=== PATIENT | female | born 1950 | race Caucasian/White ===

== ENCOUNTER 2017-06-20 15:27 | Outpatient (CLI) | payer BC | END 2017-06-20 15:28 | disposition home or self-care (01) | LOC: BICMAMMO 15:27 | PROVIDERS: ATTEND Obstetrics & Gynecology | DX: Z12.31 Encounter for screening mammogram for malignant neoplasm of breast (principal) | CPT/HCPCS: 77063; 77067 ==

== ENCOUNTER 2018-07-07 08:29 | Outpatient (CLI) | payer BC ==
--- NOTE | 2018-07-08 11:12 | MMO ---
Bilateral MAMMO Bilat Screen [facility]. CLINICAL HISTORY: Patient is 67 years old and is seen for screening. The patient has no family history of breast cancer. The patient has no personal history of cancer. VIEWS: The views performed were: bilateral craniocaudal with tomosynthesis and bilateral mediolateral oblique with tomosynthesis. FILMS COMPARED: The present examination has been compared to prior imaging studies performed at [facility] on 05/13/2015, 06/13/2016 and 06/20/2017, and at [facility] on 11/09/2010, 03/05/2012, 03/08/2013 and 04/22/2014. MAMMOGRAM FINDINGS: The breasts are almost entirely fat. There are stable benign appearing calcifications seen in both breasts. There are no suspicious masses, suspicious calcifications, or new areas of architectural distortion. IMPRESSION: THERE IS NO MAMMOGRAPHIC EVIDENCE OF MALIGNANCY. A ROUTINE FOLLOW-UP MAMMOGRAM IN 1 YEAR IS RECOMMENDED. THE RESULTS OF THIS EXAM WERE SENT TO THE PATIENT. ACR BI-RADS Category 2 - Benign finding MAMMOGRAPHY NOTE: 1. A negative mammogram report should not delay a biopsy if a dominant of clinically suspicious mass is present. 2. Approximately 10% to 15% of breast cancers are not detected by mammography. 3. Adenosis and dense breasts may obscure an underlying neoplasm.
== END 2018-07-07 08:30 | disposition home or self-care (01) ==
LOC: BICMAMMO 08:29
PROVIDERS: ATTEND Obstetrics & Gynecology
DX: Z12.31 Encounter for screening mammogram for malignant neoplasm of breast (principal)
CPT/HCPCS: 77063; 77067

== ENCOUNTER 2018-09-21 14:47 | Outpatient (CLI) | payer BC ==
--- NOTE | 2018-09-21 15:46 | MRI ---
MRI lumbar spine noncontrast HISTORY: Low back pain with radiculopathy. FINDINGS: Conus medullaris has normal appearance. Vertebral body heights are maintained. Desiccation of all of the intervertebral discs. Mild disc bulge at the T11/12 level. T12-L1: Mild disc space narrowing. Mild posterior disc bulge. Osteophytosis of the facets. Central ca nal and neural foramina remain patent L1-2: Disc space narrowing. Mild posterior disc bulge without significant compromise of the thecal sa c. Osteophytosis. Neural foramina remain patent. L2-3: Mild disc space narrowing. Minimal degenerative retrolisthesis. Degenerative changes of the fac ets. Mild bilateral foraminal stenoses. L3-4: Minimal disc bulge. Central canal remains patent. Degenerative changes with moderate stenosis o f each neural foramen. L4-5: Minimal degenerative spondylolisthesis. Posterior disc bulge and circumferential degenerative c hanges. Mild stenosis of the central canal. Moderate stenosis of each neural foramen, left greater than right. L5-S1: Posterior operative decompression. Thecal sac is patent. Degenerative changes of the facets. N eural foramina remain patent. IMPRESSION: Postoperative and mild to moderate degenerative changes of the lumbar spine. Stenosis mos t pronounced at the L4-5 neural foramina. Clinical correlation regarding each L4 dermatome is required.
--- NOTE | 2018-09-21 16:31 | MRI ---
MRI LEFT HIP WITHOUT CONTRAST: 09/21/18 HISTORY: Pain. COMPARISON: None. FINDINGS: BONES: There is an nondisplaced left femoral neck fracture with stress edema extending along the femoral nec k. Acetabulum have osteophytes bilaterally. Mild degenerative narrowing of the pubic symphysis. Advanced degenerative disease in the lower lumbar spine at L5-S1 as well as facet arthrosis. LABRUM: There is tearing throughout the substance of the anterior and superior labrum. SOFT TISSUES: There is mild synovitis of the left hip. Mild hip joint effusion on the left. There are a few bodies within the left hip joint along the medial margin of the femoral neck. CARTILAGE: There is some chondral delamination on the anterior acetabulum. There is near complete cartilage loss of the posterior femoral head. TENDONS: Iliopsoas tendon is mildly tendinotic. Rectus femoris tendon is intact. The common hamstring and taurus imembranosus tendons have undersurface partial tearing and tendinosis. MUSCLES: Muscle signal and bulk is normal. No evidence of quadriceps femoris impingement. IMPRESSION: 1. Nondisplaced stress type femoral neck fracture on the lateral margin of the femoral neck with edema throughout the head and neck. 2. Synovitis of the left hip joint with numerous bodies may be sequela of secondary chondromatos is. 3. Full thickness cartilage loss of the posterior femoral head and acetabulum with adjacent cart ilage delamination. 4. Tear throughout the substance of the anterior and superior labrum. POS: HOME
== END 2018-09-21 14:48 | disposition home or self-care (01) ==
LOC: SCSMRI 14:47
PROVIDERS: ATTEND Anesthesiology
DX: M25.552 Pain in left hip (principal); M47.26 Other spondylosis with radiculopathy, lumbar region; M84.359A Stress fracture, hip, unspecified, initial encounter for fracture; M65.9 Synovitis and tenosynovitis, unspecified; S73.192A Other sprain of left hip, initial encounter; M94.8X5 Other specified disorders of cartilage, thigh; M48.061 Spinal stenosis, lumbar region without neurogenic claudication; Z98.890 Other specified postprocedural states
CPT/HCPCS: 72148

== ENCOUNTER 2018-12-04 14:04 | Outpatient (CLI) | payer BC ==
[~2018-12-04 14:04] MED LIST: ISOVUE-370 76%-LOCM 1 ML ONE
--- NOTE | 2018-12-04 15:28 | CT ---
CT OF ABDOMEN AND PELVIS: DATE: 12/04/2018. COMPARISON: None available. HISTORY: Intermittent diarrhea. TECHNIQUE: Axial CT imaging at 5 mm intervals from the lung bases through the pubic symphysis with IV and oral c ontrast. Coronal reformatted imaging obtained. FINDINGS: There is a cyst within the left lobe of the liver measuring 3.1 cm. The spleen, gallbladder, pancreas, adrenal glands, and kidneys are unremarkable. There is scattered atherosclerotic calcification of the abdominal aorta and its branches. No evidence for bowel inflammatory change or obstruction. The appendix is unremarkable. No lymphadenopathy in the abdomen or pelvis. There is multilevel lower lumbar spine facet hypertrophy. IMPRESSION: No acute findings. POS: OFF
== END 2018-12-04 14:05 | disposition home or self-care (01) ==
LOC: BICCT 14:04
PROVIDERS: ATTEND Internal Medicine Gastroenterology
DX: K58.0 Irritable bowel syndrome with diarrhea (principal)
CPT/HCPCS: 74177; 82565

== ENCOUNTER 2019-01-12 11:58 | Outpatient (CLI) | payer BC ==
--- NOTE | 2019-01-12 13:38 | RAD ---
2 VIEW ABDOMEN: Date: 01/12/19 Supine and upright views obtained. HISTORY: Change in bowel habits. Abdominal pain. Constipation. FINDINGS: Scattered stool and gas in the colon. Scattered small bowel gas which is nonspecific. No free air or mass effect. No abnormal calcification. IMPRESSION: Scattered nonspecific small bowel gas without evidence of dilatation or obstruction. Scattered stool and gas in the colon. POS: [facility]
== END 2019-01-12 11:59 | disposition home or self-care (01) ==
LOC: BICRAD 11:58
PROVIDERS: ATTEND Physician Assistant Medical
DX: K62.5 Hemorrhage of anus and rectum (principal); K64.8 Other hemorrhoids; R19.4 Change in bowel habit
CPT/HCPCS: 74019

== ENCOUNTER 2019-09-15 08:46 | Outpatient (CLI) | payer BC ==
--- NOTE | 2019-09-15 09:11 | MMO ---
Bilateral MAMMO Bilat Screen [facility]. CLINICAL HISTORY: Patient is 68 years old and is seen for screening. The patient has no family history of breast cancer. The patient has no personal history of cancer. VIEWS: The views performed were: bilateral craniocaudal with tomosynthesis and bilateral mediolateral oblique with tomosynthesis. FILMS COMPARED: The present examination has been compared to prior imaging studies performed at [facility] on 06/13/2016, 06/20/2017 and 07/07/2018. This study has been interpreted with the assistance of computer-aided detection. MAMMOGRAM FINDINGS: The breasts are almost entirely fat. There are no suspicious masses, calcifications or areas of architectural distortion. Benign calcifications are noted bilaterally. There are no suspicious masses, suspicious calcifications, or new areas of architectural distortion. IMPRESSION: THERE IS NO MAMMOGRAPHIC EVIDENCE OF MALIGNANCY. A ROUTINE FOLLOW-UP MAMMOGRAM IN 1 YEAR IS RECOMMENDED. THE RESULTS OF THIS EXAM WERE SENT TO THE PATIENT. ACR BI-RADS Category 2 - Benign finding MAMMOGRAPHY NOTE: 1. A negative mammogram report should not delay a biopsy if a dominant of clinically suspicious mass is present. 2. Approximately 10% to 15% of breast cancers are not detected by mammography. 3. Adenosis and dense breasts may obscure an underlying neoplasm. Reported by: LILLIANA OVERTON MD Electonically Signed: [id number]
== END 2019-09-15 08:47 | disposition home or self-care (01) ==
LOC: BICMAMMO 08:46
PROVIDERS: ATTEND Obstetrics & Gynecology
DX: Z12.31 Encounter for screening mammogram for malignant neoplasm of breast (principal)
CPT/HCPCS: 77063; 77067

== ENCOUNTER 2020-09-21 10:53 | Outpatient (CLI) | payer BC | END 2020-09-21 10:54 | disposition home or self-care (01) | LOC: BICMAMMO 10:53 | PROVIDERS: ATTEND Obstetrics & Gynecology | DX: Z12.31 Encounter for screening mammogram for malignant neoplasm of breast (principal) | CPT/HCPCS: 77063; 77067 ==

== ENCOUNTER 2021-10-29 08:07 | Outpatient (CLI) | payer BC | END 2021-10-29 08:08 | disposition home or self-care (01) | LOC: BICMAMMO 08:07 | PROVIDERS: ATTEND Physician Assistant | DX: Z12.31 Encounter for screening mammogram for malignant neoplasm of breast (principal) | CPT/HCPCS: 77063; 77067 ==

== ENCOUNTER 2021-12-20 14:14 | Outpatient (CLI) | payer BC | END 2021-12-20 14:15 | disposition home or self-care (01) | LOC: SCSMRI 14:14 | PROVIDERS: ATTEND Orthopaedic Surgery | DX: M16.11 Unilateral primary osteoarthritis, right hip (principal); M70.61 Trochanteric bursitis, right hip ==

== ENCOUNTER 2022-11-15 08:25 | Outpatient (CLI) | payer BC | END 2022-11-15 08:26 | disposition home or self-care (01) | LOC: BICMAMMO 08:25 | PROVIDERS: ATTEND Obstetrics & Gynecology | DX: Z12.31 Encounter for screening mammogram for malignant neoplasm of breast (principal) | CPT/HCPCS: 77063; 77067 ==

== ENCOUNTER 2023-06-26 10:44 | Inpatient (IN) | payer MEDICARE ==
[2023-06-26] MEDS ORDERED: Meclizine HCl 25 MG TAB ONE (11:13)
[2023-06-26 11:48] LABS: #Basophils 0.1 thou/uL (0.0-0.2); #Eosinphils 0.5 thou/uL (0.0-0.7); #Monocytes 0.9 thou/uL (0.11-0.59); #Neutrophils 7.4 thou/uL (1.40-6.50); %Basophils 0.6 % (0.0-1.0); %Eosinophils 4.3 % (0.0-10.0); %Lymphocytes 14.7 % (21.0-51.0); %Monocytes 8.9 % (0.0-10.0); %Neutrophils 71.2 % (42.0-75.0); Hematocrit 43.1 % (36.0-47.0); Hemoglobin 14.5 g/dL (12.0-16.0); Mean Corpuscular HGB CONC 33.6 g/dL (32.0-36.0); Mean Corpuscular Hemoglobin 32.1 pg (27.0-31.0); Mean Corpuscular Volume 95.4 fl (78.0-98.0); Mean Platelet Volume 9.1 fL (7.4-10.4); Platelet Count 294 10x3/uL (130-400); RBC Distribution Width 12.3 % (11.5-14.5); Red Blood Cell (RBC) Count 4.52 mill/uL (4.20-5.40); White Blood Cell (WBC) Count 10.4 10x3/uL (4.8-10.8)
[2023-06-26 12:07] LABS: ALT (SGPT) 78 U/L (8-55); AST (SGOT) 59 U/L (5-34); Albumin 4.3 g/dL (3.4-4.8); Alkaline Phosphatase 336 U/L (40-110); Anion Gap 14 mmol/L (10-20); BUN (Urea Nitrogen) 13 mg/dL (9.8-20.1); Bilirubin, Total 0.6 mg/dL (0.2-1.2); Calc. Creatinine Clearance 0 mL/min (70-130); Calcium 9.8 mg/dL (7.8-10.44); Carbon Dioxide 29 mmol/L (23-31); Chloride 100 mmol/L (98-107); Estimated GFR 70; Globulin 3.3 g/dL (2.4-3.5); Glucose 113 mg/dL (83-110); Magnesium 2.3 mg/dL (1.6-2.6); Potassium 4.1 mmol/L (3.5-5.1); Protein, Total 7.6 g/dL (5.8-8.1); Sodium 139 mmol/L (136-145)
[2023-06-26 12:24] LABS: Critical Call Chem Troponin I NUR.LM21 @1224; Troponin I 0.419 ng/mL (< 0.028)
[2023-06-26] MEDS ORDERED: Artificial Tear Sol 15 ML BOT EA EYE PRN (13:12)
[2023-06-26] MEDS ORDERED: Loratadine 10 MG TAB PO PRN (13:12)
[2023-06-26] MEDS ORDERED: Acetaminophen 650 MG Suppository PR PRN (13:12)
[2023-06-26] MEDS ORDERED: Acetaminophen 325 MG TAB PO PRN (13:12)
[2023-06-26] MEDS ORDERED: hydrALAZINE 20 MG/ML VIAL SLOW IVP PRN (13:12)
[2023-06-26] MEDS ORDERED: Sodium Chloride 0.65% Nasal 44 ML BOT EA NARE PRN (13:12)
[2023-06-26] MEDS ORDERED: Ondansetron PF 4 MG/2 ML Vial IVP PRN (13:12)
[2023-06-26] MEDS ORDERED: Moisturizing Cream (Eucerin) 113 GM JAR TOP PRN (13:12)
[2023-06-26] MEDS ORDERED: Labetalol HCl 100 MG/20 ML VIAL SLOW IVP PRN (13:12)
[2023-06-26] MEDS ORDERED: Ondansetron ODT 4 MG TAB PO PRN (13:12)
[2023-06-26] MEDS ORDERED: Aspirin Chewable 81 MG TAB ONE (13:15)
[2023-06-26] MEDS ORDERED: Electrolyte Replacement Protocol 1 EACH FS SCH (16:15)
[2023-06-26] MEDS: Hydrochlorothiazide 25 MG TAB PO SCH (17:23)
[2023-06-26] MEDS ORDERED: Sucralfate 1 GM/10 ML UDCUP ONE (17:24)
[2023-06-26] MEDS: Sucralfate 1 GM TAB PO SCH (17:25)
[2023-06-26 18:14] LABS: Bacteria/HPF 1+ HPF (None Seen); Bilirubin Negative (Negative); Blood, Urine Trace (Negative); CAUTI Indications for Culture Alt mental st,lethar; Clarity Clear (Clear); Glucose, Urine (Dipstick) Normal (Negative); Ketone, Urine Negative (Negative); Leukocyte 75 Leu/uL (Negative); Nitrite Negative (Negative); Protein, Urine (Dipstick) Negative (Neg-Trace); RBC/HPF 0-3 HPF (0-3); Specific Gravity, Urine 1.005 (1.002-1.036); Squamous Epithelial 0-3 HPF (0-3); Urine Culture Reflex No No; Urobilinogen Normal mg/dL (Less than 2); WBC/HPF 0-3 HPF (0-3)
[2023-06-26 18:43] LABS: Critical Call Chem Troponin I NUR.LM30 @1843; Troponin I 0.368 ng/mL (< 0.028)
[2023-06-26] MEDS: Meclizine HCl 25 MG TAB PO SCH (21:15)
[2023-06-26] MEDS: Famotidine 20 MG TAB PO SCH (21:15)
[2023-06-26] MEDS: Atorvastatin Calcium 40 MG TAB PO SCH (21:15)
[2023-06-26 21:49] VITALS: BMI 24.3
[2023-06-27 01:28] LABS: Critical Call Chem Troponin I RESULT DECREASING
[2023-06-27 05:05] LABS: Anion Gap 16 mmol/L (10-20); BUN (Urea Nitrogen) 16 mg/dL (9.8-20.1); Calc. Creatinine Clearance 62 mL/min (70-130); Calcium 9.8 mg/dL (7.8-10.44); Carbon Dioxide 29 mmol/L (23-31); Cardiac Risk 3.5 (Less than 4.5); Chloride 98 mmol/L (98-107); Cholesterol 159 mg/dl (< 200 Desired); Estimated GFR 70; Glucose 96 mg/dL (83-110); HDL Cholesterol 46 mg/dL (>60 Neg Risk); LDL Cholesterol, Calculated 87 mg/dL; Potassium 3.6 mmol/L (3.5-5.1); Sodium 139 mmol/L (136-145); Triglycerides 129 mg/dL (Less than 150)
[2023-06-27] MEDS: Escitalopram Oxalate 10 mg Tablet PO SCH (09:57)
[2023-06-27] MEDS: Rivaroxaban 10 MG TAB PO SCH (09:57)
[2023-06-27] MEDS: Hydrochlorothiazide 25 MG TAB PO SCH (09:57)
[2023-06-27] MEDS: Atenolol 50 MG TAB PO SCH (09:58)
[2023-06-27] MEDS: Aspirin 81 mg Enteric Coated Tablet PO SCH (09:58)
[2023-06-27] MEDS: methylPREDNISolone 4 mg Tablet PO SCH (14:31)
[2023-06-28 08:52] VITALS: BP 134/65; TEMP 98.1
== END 2023-06-28 11:07 | disposition home or self-care (01) | DRG 149 ==
LOC: ERS 10:44 → ERHOLD 13:12 → 2SW 19:55 → OBSVTOIN 06-28 09:53
PROVIDERS: ADMIT Family Medicine; ATTEND Internal Medicine
DX: H81.02 Meniere's disease, left ear (principal); I67.89 Other cerebrovascular disease; I5A Non-ischemic myocardial injury (non-traumatic); H53.8 Other visual disturbances; R79.89 Other specified abnormal findings of blood chemistry; R74.01 Elevation of levels of liver transaminase levels; H91.92 Unspecified hearing loss, left ear; I48.0 Paroxysmal atrial fibrillation; I10 Essential (primary) hypertension; R26.81 Unsteadiness on feet; E78.5 Hyperlipidemia, unspecified; Z88.2 Allergy status to sulfonamides; Z79.899 Other long term (current) drug therapy
CPT/HCPCS: 36415; 70450; 70551; 71045; 80048; 80053; 80061; 81001; 83735; 83880; 84484; 85025; 93005; 93306; 93880; G0378; J7509

== ENCOUNTER 2023-12-31 10:37 | Outpatient (CLI) | payer MEDICARE ==
[2023-12-31] MEDS ORDERED: Iopamidol 370 76% 100 ML VIAL ONE (11:32)
== END 2023-12-31 10:38 | disposition home or self-care (01) ==
LOC: BICCT 10:37
PROVIDERS: ATTEND Physician Assistant Medical
DX: K52.9 Noninfective gastroenteritis and colitis, unspecified (principal); K21.9 Gastro-esophageal reflux disease without esophagitis; R63.4 Abnormal weight loss
CPT/HCPCS: 36415; 74177; 82565

== ENCOUNTER 2025-03-08 10:23 | Outpatient (CLI) | payer MEDICARE | END 2025-03-08 10:24 | disposition home or self-care (01) | LOC: BICMAMMO 10:23 | PROVIDERS: ATTEND Physician Assistant | DX: Z12.31 Encounter for screening mammogram for malignant neoplasm of breast (principal) | CPT/HCPCS: 77063; 77067 ==